=== PATIENT | female | born 1950 | race African-American/Black ===

== ENCOUNTER 2016-12-24 11:30 | Outpatient (CLI) | payer MEDICARE ==
--- NOTE | 2016-12-24 13:28 | XRay Report ---
Cervical spine series: Anterior and posterior spondylosis is identified at the C5-6 level with narrowing of the interspace. The vertebral height and other interspaces appear well preserved as does the alignment. The bones do however appear demineralized. On the oblique projections the proximal 3 foramina are not optimally visualized and the possibility of a stenosis on the right is not excluded. There is some bony compromise suspected involving the left lower 3 foramina. No swelling noted. Impressions: Significant degenerative C5-6 bone and disc changes. Bilateral shoulders, 3 views of each: Routine views demonstrates good preservation of joint alignment and joint spaces. The subacromial spaces are well preserved bilaterally. The bones appear adequately mineralized. There are no soft tissue findings. Impression: Normal shoulders bilaterally.
--- NOTE | 2016-12-25 08:31 | XRay Report ---
BILATERAL ELBOWS, 3 VIEWS: HISTORY: Bilateral elbow pain. FINDINGS: Bone mineralization is normal. There are moderate osteoarthritic changes at the left elbow and mild osteoarthritic changes at the right elbow. There is no evidence for fracture, bone lesion or large joint effusion. The soft tissues are unremarkable. IMPRESSION: Osteoarthritic changes, left greater than right.
== END 2016-12-24 11:31 | disposition home or self-care (01) ==
LOC: XRAY 11:30
PROVIDERS: ATTEND Family Medicine Adult Medicine
DX: M47.892 Other spondylosis, cervical region (principal); M25.522 Pain in left elbow; M25.521 Pain in right elbow; M25.512 Pain in left shoulder; M25.511 Pain in right shoulder
CPT/HCPCS: 72050

== ENCOUNTER 2017-01-28 12:08 | Outpatient (CLI) | payer MEDICARE ==
--- NOTE | 2017-01-28 13:29 | Mammography Report ---
Bilateral digital screen mammography with CAD. Comparison study is dated May 26, 2015. Findings: There is intermediate density of the fibroglandular tissue. In the upper right breast on the MLO projection, there is a focal area of parenchyma asymmetry with no definite corresponding density on the CC projection. No architectural distortion or suspicious calcifications are seen in either breast. Impression: Right frontal asymmetry. BI-RADS code: 0. Recommendation: Spot compression image, 90 degree view, an ultrasound if needed.
== END 2017-01-28 12:09 | disposition home or self-care (01) ==
LOC: MAMMO 12:08
PROVIDERS: ATTEND Family Medicine Adult Medicine
DX: Z12.31 Encounter for screening mammogram for malignant neoplasm of breast (principal)
CPT/HCPCS: 77067; G0202

== ENCOUNTER 2018-03-03 | Emergency (ER) | payer MEDICARE ==
[2018-03-03] MEDS ORDERED: ASPIRIN PO ONE (01:05)
[2018-03-03 01:42] LABS: Basophils % (Auto) 0.3 % (0.0-1.8); Eosinophils # (Auto) 0.1 K/mm3 (0.0-0.4); Eosinophils % (Auto) 1.8 % (0.0-4.3); Hematocrit 39.3 % (30.3-42.9); Hemoglobin 13.1 gm/dl (10.1-14.3); Lymphocytes # (Auto) 2.3 K/mm3 (1.2-5.4); Mean Corpuscular HGB Conc 33 % (30-34); Mean Corpuscular Hemoglobin 27 pg (28-32); Mean Corpuscular Volume 82 fl (79-97); Monocytes # (Auto) 0.6 K/mm3 (0.0-0.8); Monocytes % (Auto) 8.4 % (0.0-7.3); Platelet Count 193 K/mm3 (140-440); Red Blood Count 4.81 M/mm3 (3.65-5.03); Red Cell Distribution Width 14.4 % (13.2-15.2)
[2018-03-03 01:57] LABS: BUN/Creatinine Ratio 53; Blood Urea Nitrogen 21 mg/dL (7-17); Calcium 8.9 mg/dL (8.4-10.2); Hemolysis Index 3
[2018-03-03 10:33] VITALS: BP 171/61
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
--- NOTE | 2018-03-03 11:14 | XRay Report ---
ROUTINE CHEST, TWO VIEWS: HISTORY: chest pain. The trachea, heart, mediastinal contour, lung rodríguez and bony thorax are unremarkable. IMPRESSION: Unremarkable chest x-ray. No significant change since 01/18/16.
== END 2018-03-03 11:29 | disposition home or self-care (01) ==
LOC: ED
DX: I10 Essential (primary) hypertension (principal); E78.00 Pure hypercholesterolemia, unspecified; M19.90 Unspecified osteoarthritis, unspecified site; Z96.653 Presence of artificial knee joint, bilateral; Z79.82 Long term (current) use of aspirin
CPT/HCPCS: 36415; 71046; 80048; 84484; 85025; 93005; 93010; 99284